=== PATIENT | female | born 1970 | race Caucasian/White ===

== ENCOUNTER 2017-01-17 18:20 | Emergency (ER) | payer SELFPAY ==
[2017-01-17] MEDS ORDERED: ORPHENADRINE CITRATE 30 MG/ML VIAL IM ONE (18:26)
[2017-01-17] MEDS ORDERED: KETOROLAC TROMETHAMINE 60 MG/2 ML VIAL IM ONE ×2 (18:26→18:30)
[2017-01-17 18:29] VITALS: BP 172/117
[2017-01-17] MEDS ORDERED: ORPHENADRINE CITRATE 30 MG/ML VIAL ONE (18:30)
--- NOTE | 2017-01-17 18:38 | ERNOTE ---
Lower Extremity HPI - Narrative Date of Service: 01/17/17 - General Lower Extremities Pain: hip: right, leg: right Time Seen by Provider: 01/17/17 18:24 - Immun/Allergies/Home Medications Allergies/Adverse Reactions: Allergies Allergy/AdvReac Type Severity Reaction Status Date / Time codeine Allergy Verified 07/04/15 09:53 Home Medications: HOME MEDICATIONS Atorvastatin Calcium [Lipitor] 10 mg PO DAILY 07/04/15 [Last Taken Unknown] Fenofibrate [Lofibra] 160 mg PO DAILY 07/04/15 [Last Taken Unknown] Glimepiride [Amaryl] 2 mg PO BID 07/04/15 [Last Taken Unknown] Multivitamins [Multivitamin Rissa] 1 cap PO DAILY 07/04/15 [Last Taken Unknown] Venlafaxine HCl [Effexor] 75 mg PO 07/04/15 [Last Taken Unknown] metFORMIN HCL [Glucophage Xr] 750 mg PO 07/04/15 [Last Taken Unknown] Cyclobenzaprine HCl [Flexeril] 10 mg PO TID PRN #30 tab 01/17/17 [Last Taken Unknown] oxyCODONE HCL/ACETAMINOPHEN [Percocet 5 MG/325 MG] 1 tab PO Q4H PRN #20 tab 12/31 [Last Taken Unknown] - History of Present Illness Narrative: Pt. comes in with c/o R post hip pain that radiates to her lateral R leg that started 4 days ago. Pt. states that she has had back problems in the past and that this feels like her sciatic reactions. Pt. also states that she has been taking Naproxen without relief. Pt. denies any Numbness Tingling, incontinence , SOB, CP, NVD, fever, or alleviating factors. Pt. states that movement exacerbates the pain. Review of Systems - Review of Systems Constitutional: Present: no symptoms reported. Absent: recent illness, fever, chills, weakness, fatigue, malaise EYE: Present: no symptoms reported ENT: Present: no symptoms reported. Absent: nose pain, nose congestion, nasal drainage Respiratory: Present: no symptoms reported. Absent: shortness of breath, cough , wheezing Cardiology: Present: no symptoms reported. Absent: chest pain, palpitations, edema Gastrointestinal/Abdominal: Present: no symptoms reported. Absent: nausea, vomiting, diarrhea Genitourinary: Present: no symptoms reported Musculoskeletal: Present: back pain - L5 S1, muscle pain - R leg, joint pain - R hip. Absent: neck pain Skin: Present: no symptoms reported Neurological: Present: no symptoms reported. Absent: headache, dizziness/light- headedness, numbness, tingling All Other Systems: All systems neg except as marked - Patient's Past Medical History Patient History - Medical: Chronic Pain - back, Diabetes Type 2, Depression Patient History - Cardiac/Respiratory: Hypertension, Hyperlipidemia Patient History - Cancer: No Hx of Cancer Patient History - Surgical Procedures: Cholecystectomy, D & C, Tubal Ligation Patient History - Other: None LMP (Calendar): 05/21/15 - Family History Mother Family History - Cardiac/Respiratory: COPD, CVA/Stroke, Hypertension Father Family History - Medical: Diabetes Type 2 Family History - Cardiac/Respiratory: Hypertension - Social History Living Situations: spouse Abuse History: No History of abuse Psych History: Hx of Anxiety Alcohol Use: none Drug Use: none Physical Exam - Physical Exam General Appearance: Present: wd/wn, alert, no apparent distress Eye Exam: Normal inspection: bilateral, PERRL: bilateral, EOMI: bilateral Neck: Present: normal inspection, nontender Respiratory: Present: no respiratory distress, normal breath sounds, no accessory muscle use, chest nontender, lungs clear Cardiovascular/Chest: Present: regular rate, rhythm, no murmur, normal peripheral pulses Gastrointestinal/Abdominal: Present: normal bowel sounds, nontender, nondistended, soft, no organomegaly Back Exam: Present: normal range of motion, no CVA tenderness, vertebral tenderness - L5 S1 Extremity Exam: Present: normal inspection, non-tender, normal range of motion, no edema Neurological Exam: Present: alert, oriented, normal mood/affect, no motor/ sensory deficits, photographer finish II-XII nml as tested, normal cerebellar test Skin Exam: Present: normal color, warm/dry. Absent: pallor, skin rash ED Progress - Vital Signs Patient's Vital Signs:: I have reviewed the patient's vital signs. - X-Ray X-Ray #1 X-Ray: lumbosacral Interpretation: Reviewed by me X-ray Comments: degenerative disk disease - Progress/Reassessment Progress:: Improved Departure Clinical Impression: DDD (degenerative disc disease), lumbosacral - Departure Disposition: Home self-care Condition: Good Instructions: Degenerative Disk Disease, Sciatica, [id number] Additional Instructions: Please follow up with [facility] until you get insurance for primary care. Call [address] , [place] [address] Referrals: Hilario Macias MD [Primary Care Provider] - Prescriptions: Cyclobenzaprine HCl [Flexeril] 10 mg PO TID PRN #30 tab PRN Reason: MUSCLE SPASMS oxyCODONE HCL/ACETAMINOPHEN [Percocet 5 MG/325 MG] 1 tab PO Q4H PRN #20 tab PRN Reason: Pain
--- OUTSIDE RECORDS SUMMARY | 2017-01-17 18:43 | XMS REPORT | Continuity of Care Document ---
:1970 Author Organization [facility] ([facility]) Address [address] [place] [address] Phone [phone] Care Team Providers Name Role Phone Unavailable Primary Care Provider Unavailable Source Comments This disclosure is being made pursuant to the Care Everywhere program, applicable federal and state laws, and may not contain all informaitonavailable regarding this patient.[facility] ([facility]) Active Allergies and Adverse Reactions Allergen Noted Date Severity Reactions Comments Codeine Nausea & Vomiting Current Medications Not on file Active Problems Not on file Social History Tobacco Use Types Packs/Day Years Used Date Never Assessed Last Filed Vital Signs Vital Sign Reading Time Taken Blood Pressure 114/68 02/14/2006 10:53 AM CDT Pulse 77 02/14/2006 10:53 AM CDT Temperature 36.2 C (97.16 F) 02/14/2006 10:53 AM CDT Respiratory Rate - - Height 1.7 m (5' 6.92") 02/14/2006 10:53 AM CDT Weight 98 kg (216 lb 0.8 oz) 02/14/2006 10:53 AM CDT Body Mass Index 33.91 02/14/2006 10:53 AM CDT Oxygen Saturation - - Plan of Care Health Maintenance Due Date Last Done Comments Hepatitis B Vaccine (1 of 3 - Primary Series) 1970 Tdap Vaccine 1980 Lipid Disorder Screening 11/22/1987 MMR Vaccine 11/22/1987 Td Vaccine 11/22/1987 Cervical Cancer Screening 11/22/1999 Mammogram 2009 Influenza Vaccine: Seasonal (#1) 04/16/2016 Results from Last 3 Months Not on file
[2017-01-17] MEDS ORDERED: MORPHINE SULFATE 4 MG/ML SYRG IM ONE (21:00)
[2017-01-17] MEDS ORDERED: MORPHINE SULFATE 4 MG/ML SYRG ONE (21:02)
[2017-01-17] MEDS ORDERED: CYCLOBENZAPRINE HCL 10 MG TABLET PO ONE (21:48)
[2017-01-17] MEDS ORDERED: oxyCODONE HCL/ACETAMINOPHEN 1 TAB TABLET PO ONE (21:48)
[2017-01-17] MEDS ORDERED: oxyCODONE HCL/ACETAMINOPHEN 1 TAB TABLET ONE (22:07)
[2017-01-17] MEDS ORDERED: CYCLOBENZAPRINE HCL 10 MG TABLET ONE (22:07)
== END 2017-01-17 22:17 | disposition home or self-care (01) ==
LOC: ER 18:20
DX: M51.37 Other intervertebral disc degeneration, lumbosacral region (principal)